=== PATIENT | female | born 2000 | race Caucasian/White ===

== ENCOUNTER 2023-11-20 08:35 | Inpatient (IN) | payer OTHER, SELFPAY ==
[2023-11-20] VITALS (46 sets, daily range): BP systolic 98–142; BP diastolic 58–96; PULSE 67–113; RESP 16–18; TEMP 36.2–37.4; O2SAT 91–100; BMI 26.8
[2023-11-20] MEDS: Lactated Ringers 1,000 ML 999 ML IV (06:50)
--- NOTE | 2023-11-20 07:29 | OB.TRI.NOTE ---
HPI - General General Date of Admission: 11/20/23 HPI Narrative MICHAEL MAST, is a 23 F at 39 weeks who presents to triage with contractions that started yesterday and have increased in frequency and intensity. Prior delivery by section and patient desires TOLAC. Maternal Data Information JACKIE Calculator Estimated Delivery Date Method Current WG Current Estimate 11/27/23 Manual 39w 5d PFSH PFSH Medical History (Updated 11/22/23 @ 10:[address] Annette Pérez MD) depression Home Medications famotidine 20 mg tablet (Pepcid) 20 mg PO DAILY 11/20/23 [History Last Taken Unknown] acetaminophen 500 mg tablet 1,000 mg (2 x 500 mg) PO Q6 #0 tabs 11/22/23 [Rx Last Taken Unknown] ibuprofen 600 mg tablet 600 mg PO Q6H #0 tabs 11/22/23 [Rx Last Taken Unknown] Allergy/AdvReac Type Severity Reaction Status Date / Time ramón Allergy racing HR Verified 11/20/23 04:13 Social History Smoking Status: Never smoker History Elective abortions Hx Para 1 Spontaneous abortions Hx # Term Pregnancies Ectopic pregnancies Hx # Pregnancies Multiple births # of living children Assessment & Plan (1) 39 weeks gestation of : (2) Previous delivery, antepartum: (3) Uterine contractions: PLAN: Plan CE 2/60/-3 Start IV and give 1000 L bolus of LR Will continue to monitor and reevaluate NST reactive Dr. Monzon updated and is assuming management
--- NOTE | 2023-11-20 08:35 | HP.PCM.OB_ITS ---
HPI - General General Date of Admission: 11/20/23 Date of Service: 11/20/23 Chief Complaint: contractions HPI Narrative MICHAEL MAST, is a 23 F who presents who presents complaining contractions that were irregular yesterday. More regular and intense since she got here today. She denies any bleeding or leaking. She has a history of 1 previous section she was at 4 cm and it was done for intolerance to labor. Past surgical history significant for section Allergies no known drug allergies Medications vitamin, famotidine as needed for heartburn. Past medical history significant for reflux, colonic polyps, vitamin D deficiency and anxiety Social history she denies any tobacco alcohol or drug use Maternal Data Information JACKIE Calculator Estimated Delivery Date Method Current WG Current Estimate 11/27/23 Manual 39w 0d Final JACKIE: 11/27/23 Gestational age: 39 0/7 PFSH PFSH Home Medications famotidine 20 mg tablet (Pepcid) 20 mg PO DAILY 11/20/23 [History Last Taken Unknown] Allergy/AdvReac Type Severity Reaction Status Date / Time ramón Allergy racing HR Verified 11/20/23 04:13 ROS Constitutional Constitutional: Denies fatigue, fever(s) or malaise Eyes Eyes: Denies change in vision ENT HEENT: Denies dizziness or headache(s) Cardiovascular Cardiovascular: Denies chest pain, dyspnea or lightheadedness Respiratory/Chest Respiratory/Chest: Denies cough or dyspnea Gastrointestinal Gastrointestinal: Denies change in bowel habits Genitourinary Genitourinary: Denies burning urination or genital lesions Integumentary Integumentary: Denies rash Neurologic Neurologic: Denies confusion, dizziness, headache(s), numbness or weakness Vital Signs Vital Signs Vital Signs: 11/20/23 07:27 11/20/23 07:27 11/20/23 07:30 Temperature Temperature Source Temporal Pulse Rate 69 Blood Pressure 127/83 H BP Systolic 127 BP Diastolic 83 11/20/23 07:30 Temperature 98.3 F Temperature Source Pulse Rate Blood Pressure BP Systolic BP Diastolic Weight Weight: 73.028 kg Body Mass Index (BMI) 26.8 Physical Exam Const alert and no apparent distress General Appearance: cooperative HEENT normocephalic Resp normal respiratory effort Cardio regular rate GI soft to palpation GI Narrative: gravid, nontender, appropriate for gestational age Extremity no calf tenderness General Extremity: edema Skin no wounds Rashes: No rashes noted Psych activity/motor behavior normal Labs Labs Labs: No Data to Display Assessment & Plan (1) 39 weeks gestation of : (2) Previous delivery, antepartum: (3) Spontaneous onset of labor: PLAN: Plan May weight is less than 4000 g and pelvis clinically adequate to expect va ginal delivery. Risk benefits alternatives to trial of labor were discussed with patient, her questions were answered to her satisfaction she desires to proceed. She understands short and long-term risk. She understands risk of uterine rupture, possible lack of oxygen stroke hemorrhage need for blood transfusion and even for her and the fetus. She desires to proceed. Understands recommendation for epidural and reasoning for this. Team is notified. May have routine pain control measures as needed and as indicated.
[2023-11-20 08:57] LABS: Absolute Lymphocyte Count 2.72 X10^3/uL (0.83-4.51); Basophil# 0.05 X10^3/uL; Basophil% 0.4 % (0-1); Eosinophil# 0.16 X10^3/uL; Eosinophils% 1.3 % (0-5); Hematocrit 40.4 % (37-47); Hemoglobin 13.8 g/dL (12.0-15.0); Lymphocyte # 2.72 X10^3/ul (0.83-4.51); Lymphocyte % 21.4 % (19-41); Mean Corp Hgb Conc 34.2 g/dL (32-36); Mean Corpuscular Hgb 31.4 pg (27.0-32.0); Mean Platelet Vol. 11.6 fl (6.2-12.0); Monocyte# 0.71 X10^3/uL; Monocyte% 5.6 % (0-10); NRBC Flagged by Analyzer 0 % (0-5); Neutrophil % 70.7 % (47-70); Platelet Count 265 K/mm3 (150-450); RBC Distribution Width CV 12.7 % (11.6-14.6); RBC Distribution Width SD 42.8 fl (35.1-43.9); Red Blood Count 4.39 M/mm3 (4.2-5.4); White Blood Count 12.7 K/mm3 (4.4-11.0)
[2023-11-20 09:26] LABS: Syphilis Antibodies Non-reactive
[2023-11-20] MEDS: Penicillin G Pot 5,000,000 UNITS in 0.9% Normal Saline (100mL MB+) 100 ML 150 UNITS IV (09:30)
[2023-11-20] MEDS: Lactated Ringers 1,000 ML 50 ML IV (09:30)
[2023-11-20] MEDS: Ondansetron 4 MG/2 ML Vial IV (10:17)
[2023-11-20] MEDS: LACTATED RINGERS 500 ML 999 ML IV (10:30)
[2023-11-20] MEDS: fentaNYL-bupivacaine (epidural) 100 ML BAG EPIDURAL (10:58)
[2023-11-20] MEDS: CHLORHEXIDINE GLUC 2% CLOTH 1 EACH TOWELETTE TOPICAL (12:37)
[2023-11-20] MEDS: Amnioinfusion- 0.9% NS 1,000 ML IV.SOLN. 50 ML INTRA-UTER (12:40)
[2023-11-20] MEDS: Acetaminophen 500 MG Tablet PO (13:22)
[2023-11-20] MEDS: Sodium Citrate/Citric Acid 30 ML UDC PO (13:22)
[2023-11-20] MEDS: Cefazolin 2 GM in 0.9% Normal Saline (100mL Bag) 100 ML IV (13:27)
[2023-11-20] MEDS: Azithromycin 500 MG in Dextrose 5%-Water (250mL Bag) 250 ML 250 MG IV (13:40)
--- NOTE | 2023-11-20 14:13 | OP.PCM_ITS ---
Assessment & Plan (1) Failed trial of labor following previous , antepartum: (2) Spontaneous onset of labor: (3) 39 weeks gestation of : (4) Single live : Maternal Data Information JACKIE Calculator Estimated Delivery Date Method Current WG Current Estimate 11/27/23 Manual 39w 0d Final JACKIE: 11/27/23 Gestational age: 39 0/7 Details Operative Information Date of Procedure: 11/20/23 Pre-Operative Diagnosis: category 2 FHTs remote from delivery Post-Operative Diagnosis: same +CPD Classification: GERTRUDIS Procedure Type: low transverse security manager #1: David Chong Type of Anesthesia: Spinal Anesthesiologist: Tiffanie Man Antibiotic Given: Ancef 2 grams IV x1 and Zithromax 500 mg/5 mL X1 Drain: Nick to straight drain Estimated Blood Loss: 600 Fluids Replaced: 1100 Procedure Start Time: 13:43 Procedure Stop Time: 15:16 Time of Delivery: 13:47 Findings Description of Procedure: The patient was taken to the operating room. She was prepped and draped in the dorsal supine position with a leftward tilt. A Pfannenstiel skin incision was made approximately 2 cm above the symphysis pubis and carried through to underlying layer fascia with the scalpel. The fascia was incised incised in the midline and extended laterally with the Hunter scissors. The fascia was dissected off the rectus muscles with blunt and sharp dissection. The rectus muscles were in the midline and the peritoneum was entered bluntly. The peritoneal incision was stretched and the bladder blade was placed. The uterine incision was made in a low transverse fashion with the scalpel and extended superiorly and inferiorly with blunt dissection. The membranes were ruptured and light meconium stained fluid returned. The infant's head was brought to the incision in the flexed position but was not able to easily deliver. The manage scissors were used to extend the uterus to the right and c ut a little bit of the right side of the rectus muscles. The vacuum was placed on the flexion point and vacuum created 550 mmHg. I pulled with 1 pull and the head delivered without difficulty. The vacuum was removed. There were no pop offs the remainder of the infant was delivered with gentle traction and fundal pressure in the standard fashion. The mouth and nares were bulb suctioned. The cord was clamped and cut as the infant was stimulated. Cord clamping was not delayed. The infant was handed off to the waiting nursing staff. The placenta was delivered with fundal massage and gentle traction in the standard fashion. The uterus was exteriorized and cleared of all clots and debris. The uterine incision was closed with #1 Vicryl in a running locked fashion. 2 [id number] 0 Vicryl sutures were needed to obtain hemostasis in the incision. The incision was examined and was found to be hemostatic. The uterus was placed back into the peritoneal cavity and hemostasis was again confirmed. The rectus muscles were examined and any bleeding was Bovie cauterized. The parietal peritoneum and rectus muscles were closed en bloc with an 0 Vicryl running suture. The rectus fascia was examined and any bleeding was Bovie cauterized and the rectus fascia was closed with 1 Vicryl suture in a running standard fashion. The subcutaneous tissue was examining and any blee ding was Bovie cauterized. The subcutaneous tissue was reapproximated with 3-0 Vicryl suture. The skin was closed in a subcuticular fashion by the [employer] with me present in the labor and delivery suite. I performed the remainder of the procedure with assistance. All sponge, lap, and needle counts were correct. The patient was taken to her room for recovery in a stable condition. Apgars were not available at the time of this note due to pediatric team still attending to . Presentation: Positive for Vertex Amniotic Membrane Rupture Type: Artificial Amniotic Fluid Description: Lightly stained meconium Placental Delivery Description: Expressed Placenta Disposition: Sent to Pathology Cord Vessel Description: 3 Vessels Cord Entanglement: Around neck x 1, loose Nuchal Cord Compression: Without compression Cord Gases: ABG and VBG Infant A Gender: Male Delayed Cord Clamping: No Complications Complications: none
[2023-11-20] MEDS: Oxytocin 15 Units/NS 250ml 15 UNITS/250 ML IV.SOLN 83 UNITS IV (15:20)
[2023-11-20] MEDS: Ketorolac 30 MG/ML Syringe IV ×2 (16:32→22:40)
[2023-11-20] MEDS: Acetaminophen 500 MG Tablet 1000 MG PO (18:23)
[2023-11-20] MEDS: Lactated Ringers 1,000 ML 100 ML IV (18:24)
[2023-11-20] MEDS: 0.9% Saline Lock 10 ML Syringe IV (22:40)
[2023-11-21] VITALS (7 sets, daily range): BP systolic 110–115; BP diastolic 75–81; PULSE 61–83; RESP 16; TEMP 36.6–36.9; O2SAT 98–100
[2023-11-21] MEDS: Acetaminophen 500 MG Tablet 1000 MG PO ×5 (00:24→23:54)
[2023-11-21] MEDS: 0.9% Saline Lock 10 ML Syringe IV ×2 (04:51→10:44)
[2023-11-21] MEDS: Ketorolac 30 MG/ML Syringe IV ×2 (04:51→10:44)
[2023-11-21 05:17] LABS: Hematocrit 37.5 % (37-47); Hemoglobin 12.2 g/dL (12.0-15.0); Mean Corp Hgb Conc 32.5 g/dL (32-36); Mean Corpuscular Hgb 31.8 pg (27.0-32.0); Mean Corpuscular Volume 97.7 fL (81-99); Mean Platelet Vol. 11.1 fl (6.2-12.0); Platelet Count 244 K/mm3 (150-450); RBC Distribution Width CV 12.7 % (11.6-14.6); RBC Distribution Width SD 44.9 fl (35.1-43.9); Red Blood Count 3.84 M/mm3 (4.2-5.4); White Blood Count 21.2 K/mm3 (4.4-11.0)
[2023-11-21] MEDS: Senna/Docusate Sodium 1 Tablet PO (10:44)
--- NOTE | 2023-11-21 11:34 | PCM.PN.OB ---
Subjective Subjective She has been unable to void since dumont removed. Denies other complaints Objective Data Objective Data Vital Signs: Vital Signs Temp Pulse Resp BP Pulse Ox O2 Del Method 98.3 F 67 16 113/79 98 Room Air 11/21/23 09:19 11/21/23 09:19 11/21/23 09:19 11/21/23 09:19 11/21/23 09:19 11/21/23 09:19 Oxygen Delivery Method Room Air Weight: 161 lb Body Mass Index (BMI) 26.8 Intake & Output: Intake and Output for Last 24 Hours 11/19/23 11/20/23 11/21/23 23:59 23:59 23:59 Intake Total 2942.5 / 2942.5 Output Total 3500 / 3500 1200 / 1200 Balance -557.5 / -557.5 -1200 / -1200 Lab / Micro Data 11/21/23 05:05 Labs: Laboratory Results - last 24 hr 11/21/23 05:05: WBC 21.2 H, RBC 3.84 L, Hgb 12.2, Hct 37.5, MCV 97.7 D, MCH 31.8, MCHC 32.5, RDW Std Deviation 44.9 H, RDW Coeff of Daniel 12.7, Plt Count 244, MPV 11.1 Physical Exam Const alert, oriented x3 and no apparent distress HEENT normocephalic GI soft to palpation, non-tender and non-distended GI Narrative: fundus firm, mid & below umbilicus Incision - bandage c/d/i other than scant dried blood on bandage Extremity normal to inspection and no calf tenderness Assessment & Plan (1) Failed trial of labor following previous , antepartum: COMMENT: POD#1 PLAN: Plan Heme - HDS, CBC reviewed ID - AF, no signs infection - plan for straight catheterization if patient unable to void GI - ADAT Routine care
[2023-11-21] MEDS: Ibuprofen 600 MG Tablet PO ×2 (16:49→23:53)
[2023-11-21] MEDS: SimETHICONE 80 MG Chewable Tablet PO (20:57)
[2023-11-22 01:30] VITALS: BP 122/93; PULSE 82; RESP 15; TEMP 36.3; O2SAT 99
[2023-11-22] MEDS: Acetaminophen 500 MG Tablet 1000 MG PO ×2 (06:20→12:20)
[2023-11-22] MEDS: Ibuprofen 600 MG Tablet PO ×2 (06:20→12:20)
[2023-11-22 09:19] VITALS: BP 114/72; PULSE 79; RESP 16; TEMP 36.4; O2SAT 98
[2023-11-22] MEDS: Senna/Docusate Sodium 1 Tablet PO (09:25)
[2023-11-22] MEDS: SimETHICONE 80 MG Chewable Tablet PO ×2 (09:26→12:19)
--- NOTE | 2023-11-22 10:04 | PCM.PN.OB ---
Subjective Subjective Denies compplaints Objective Data Objective Data Vital Signs: Vital Signs Temp Pulse Resp BP Pulse Ox O2 Del Method 97.6 F L 79 16 114/72 98 Room Air 11/22/23 09:19 11/22/23 09:19 11/22/23 09:19 11/22/23 09:19 11/22/23 09:19 11/22/23 09:19 Oxygen Delivery Method Room Air Weight: 161 lb Body Mass Index (BMI) 26.8 Intake & Output: Intake and Output for Last 24 Hours 11/20/23 11/21/23 11/22/23 23:59 23:59 23:59 Intake Total 2942.5 / 2942.5 Output Total 3500 / 3500 2300 / 2300 Balance -557.5 / -557.5 -2300 / -2300 Lab / Micro Data 11/21/23 05:05 Physical Exam Const alert, oriented x3 and no apparent distress HEENT normocephalic GI soft to palpation, non-tender and non-distended GI Narrative: fundus firm, mid & below umbilicus Incision - bandage c/d/i other than stable dried blood Extremity normal to inspection and no calf tenderness Assessment & Plan (1) Failed trial of labor following previous , antepartum: COMMENT: POD#2 PLAN: Plan D/c home
--- NOTE | 2023-11-22 10:07 | PCM.DC.SUM ---
Providers Date of Admission: 11/20/23 Primary Care Physician: Asha Primary Care Phys Reason For Visit: REPEAT Diagnosis Discharge Diagnosis (1) Failed trial of labor following previous , antepartum: Status: Acute Code(s): O66.41 - Failed attempted vaginal after previous delivery Plan D/c home Medications at Discharge Home Medications famotidine 20 mg tablet (Pepcid) 20 mg PO DAILY 11/20/23 acetaminophen 500 mg tablet 1,000 mg (2 x 500 mg) PO Q6 #0 tabs 11/22/23 ibuprofen 600 mg tablet 600 mg PO Q6H #0 tabs 11/22/23 Hospital Course Operations section Summary of Care Provided Minutes Spent on Discharge: 15 Weight / BMI Weight Weight: 161 lb Body Mass Index (BMI) 26.8 ABG / Lab / Microbiology Data 11/21/23 05:05 D/C Instructions Discharge Diet: No restrictions Discharge Activity: May Shower May resume sexual activity in: 6 weeks Weight Bearing Status: Weight bearing as tolerated Call your doctor if your incision/area has: Continuous Slow Oozing, Sudden Increased Bleeding, Increased Pain/ Swelling, Increased Redness, Foul Smelling Discharge and Swelling at the incision site Call your doctor if you observe: Fever of 101 or Higher, Coldness, Increased Pain, Change in Color, Inability to urinate, Inability to have a bowel movement, Using more than 1 pad per hour, Shortness of breath, Dizziness, Fainting spells, Chest pain, Increased palpitations (irregular heartbeat), Calf discomfort and Uncontrolled pain Suture Line Care: Avoid Pulling/Pushing and Avoid Pinching/Bending Remove Dressing in: 1 week Cleanse incision/area with: Soap & Water Please Follow Up With: Genia Monzon MD When: Follow up in 2 and 6 weeks for visits. Meaningful Use Info Meaningful Use Diagnoses (Choose all that apply): None applicable Discharge Plan Admission Admit Date/Time: 11/20/23 08:35 Primary Reason for Your Visit: section Attending Provider: Genia Monzon Primary Care Provider: [facility] Primary Discharge Orders/Prescriptions Prescriptions: New acetaminophen 500 mg Tablet 1,000 mg PO Q6 Qty: 0 0RF ibuprofen 600 mg Tablet 600 mg PO Q6H Qty: 0 0RF Continued famotidine [Pepcid] 20 mg tablet 20 mg PO DAILY Referrals / Follow Up: Gilda PhysicianNo Primary [Primary Care Provider] - Disposition Disposition (needs filled in before D/C Order can be placed): Home, Self Care
[2023-11-24 23:50] LABS: Pathology Specimen OB SEE PATHOLOGY REPORT
== END 2023-11-22 12:30 | disposition home or self-care (01) | DRG 788 ==
LOC: WPOUT 11-24 11:00
PROVIDERS: Admitting Provider Obstetrics & Gynecology; Referring Provider Obstetrics & Gynecology; Visit Provider Obstetrics & Gynecology
DX: O34.219 Maternal care for unspecified type scar from previous cesarean delivery (principal); O66.41 Failed attempted vaginal birth after previous cesarean delivery; Z3A.39 39 weeks gestation of pregnancy; O69.81X0 Labor and delivery complicated by cord around neck, without compression, not applicable or unspecified; O77.0 Labor and delivery complicated by meconium in amniotic fluid; Z37.0 Single live birth
CPT/HCPCS: 59025; 59050; 85025; 85027; 86780; 86850; 86900; 86901; 99221; J7030; J7120; A4216; G0378; J2405

== ENCOUNTER 2025-05-16 09:45 | Inpatient (IN) | payer OTHER, SELFPAY ==
--- NOTE | 2025-04-27 11:54 | HP.PCM_ITS ---
History and Physical Date of Admission: 05/16/25 HPI: The patient is a 24 year old female presenting for pre-operative visit. She is scheduled for , for prevous c/s on 05/16/25. Procedure discussed along with risks, benefits and complications. Other alternatives discussed for management. Consent form signed? Yes. ? ? PAST MEDICAL HISTORY PAST MEDICAL HISTORYDiagnosisDate?anxiety??Elevated glucose tolerance test09/08/2023?09/14/23-3hr GTT normal. Barbi Hernandez APRN.CNM 09/08/23 - needs 3hr GTT - Anntete Pérez MD ? ?Gastric reflux??History of colonic polyps??Hyperlipidemia??Kidney stone??Nausea and vomiting during (HCC)10/14/2024?10/14/24 Vitamin B6 and Unisom doses reviewed. Already has Zofran rx. Reviewed first trimester risks. Dina Gomes APRN.CLOTH COVERED HELMET PULLER ? ? depression??Vitamin D deficiency? ? ? PAST SURGICAL HISTORY PAST SURGICAL HISTORYProcedureLateralityDate? SECTION HX???x2 ?COLONOSCOPY & POLYPECTOMY???[facility]???LITHOTRIPSY XTRCORP SHOCK WAVE???with stents ? ? ? CURRENT MEDICATIONS Current Outpatient MedicationsMedicationSigDispenseRefill?ferrous sulfate 325 mg (65 mg iron) EC tabletTake 1 tablet by mouth once daily.???potassium chloride (K-TAB) 10 mEq tabletTake 10 mEq by mouth two times a day.???famotidine (PEPCID) 20 mg tabletTake 1 tablet by mouth two times a day.60 tablet2?glucose 4 gram chewable tabletTake by mouth every 24 hours.???montelukast (SINGULAIR) 10 mg tablettake 1 tablet (10 mg) by mouth once daily at bedtime.???ondansetron (ZOFRAN) 4 mg tabletTake 1 tablet by mouth every 8 hours as needed.30 tablet3?fluticasone (FLONASE) 50 mcg/actuation nasal sprayADMINISTER 2 SPRAYS INTO EACH NOSTRIL ONCE DAILY.???PNV 78-eaif-dusqkaltyati-dha 29 mg iron-1 mg - 350 mg CKDRTake 1 capsule by mouth once daily.1 Kit11?calcium phosphate dibas/vit D3 (VITAMIN D, WITH CALCIUM, ORAL)Take by mouth.???acyclovir (ZOVIRAX) 400 mg tabletTake 1 tablet by mouth two times a day. for 7 days as needed for [id number] tablet1?No current facility-administered medications for this visit. ? ? ALLERGIES: Karla ? PERSONAL HISTORY: SOCIAL HISTORY Social History?Tobacco Use?Smoking status:Never?Smokeless tobacco:NeverVaping Use?Vaping status:Never UsedSubstance Use Topics?Alcohol use:Not Currently?? Comment: occasionally?Drug use:Never ? FAMILY HISTORY: FAMILY HISTORY FAMILY HISTORY ProblemRelationAge of Onset?FibromyalgiaMother??other (endometriosis)Mother??other (gastrc reflux)Father??DiabetesFather??other (transgender)Brother??No Known ProblemsBrother??No Known ProblemsBrother??No Known ProblemsMaternal Grandmother??No Known ProblemsMaternal Grandfather??other (diverticulosis)Paternal Grandmother??SarcoidosisPaternal Grandmother??DiabetesPaternal Grandfather??ObesityPaternal Grandfather??No Known ProblemsDaughter??No Known ProblemsSon? ? ? REVIEW OF SYMPTOMS: GENERAL: denies fevers or chills ENDOCRINOLOGY: has not been on steroids Cardiology : denies palpitations or chest pain Respiratory: denies SOB or cough Hematology: denies history of prolonged bleeding or easy bruising or VTE Allergy: Denies history of personal or family history of allergy to anesthesia ? PHYSICAL EXAMINATION: ? VITALS: Blood pressure 104/62, weight 70.8 kg (156 lb), last menstrual period 08/14/2024, not currently . ? GENERAL: The patient is well nourished, well hydrated in no acute distress. , The patient is oriented to time, place, and person. NECK: Supple. No lynphadenopathy, normal thyroid, no thyromegaly. LUNGS: Clear to auscultation bilaterally. no wheezes, rhonchi or rales HEART: Regular rate and rhythm, Normal heart sounds, and No murmurs or gallops abd- soft, nontender, gravid ? IMPRESSION: Estimated Date of Delivery: 05/21/25 ? PLAN: The risks/benefits/alternatives and personal involved for the planned delivery were reviewed with the patient. Her questions were answered to her satisfaction and she desires to proceed. Consent was signed. I reviewed with her postop instructions and expectations. ? ? I have reviewed and updated past medical and surgical history, medications and allergies Assessment & Plan Assessment/Plan (1) Previous delivery affecting : (2) Supervision of high risk in third trimester:
[2025-05-16] VITALS (15 sets, daily range): BP systolic 99–120; BP diastolic 56–76; PULSE 69–103; RESP 15–19; TEMP 36.1–36.8; O2SAT 97–100; BMI 25.3
[2025-05-16] MEDS: Lactated Ringers 1,000 ML 150 ML IV (10:50)
[2025-05-16] MEDS: Lactated Ringers 1,000 ML 999 ML IV (10:53)
[2025-05-16 11:01] LABS: Absolute Lymphocyte Count 1.85 X10^3/uL (0.83-4.51); Absolute Neutrophil Count 6.3 X10^3/uL (2.0-7.7); Basophil# 0.02 X10^3/uL; Basophil% 0.2 % (0-1); Eosinophil# 0.04 X10^3/uL; Eosinophils% 0.5 % (0-5); Hematocrit 35.1 % (37-47); Lymphocyte # 1.85 X10^3/ul (0.83-4.51); Lymphocyte % 21.1 % (19-41); Mean Corp Hgb Conc 34.2 g/dL (32-36); Mean Corpuscular Hgb 30.5 pg (27.0-32.0); Mean Corpuscular Volume 89.3 fL (81-99); Monocyte# 0.56 X10^3/uL; Monocyte% 6.4 % (0-10); NRBC Flagged by Analyzer 0 % (0-5); Neutrophil # 6.26 X10^3/uL (2.7-7.7); Neutrophil % 71.3 % (47-70); Platelet Count 218 K/mm3 (150-450); RBC Distribution Width CV 14.6 % (11.6-14.6); RBC Distribution Width SD 47.5 fl (35.1-43.9); Red Blood Count 3.93 M/mm3 (4.2-5.4); White Blood Count 8.8 K/mm3 (4.4-11.0)
[2025-05-16] MEDS: Acetaminophen 500 MG Tablet 1000 MG PO ×3 (11:04→22:54)
[2025-05-16 11:37] LABS: Syphilis Antibodies Nonreactive (Nonreactive)
[2025-05-16] MEDS: Sodium Citrate/Citric Acid 30 ML UDC PO (12:05)
[2025-05-16] MEDS: Cefazolin 2 GM in 0.9% Normal Saline (100mL Bag) 100 ML IV (12:19)
--- NOTE | 2025-05-16 12:59 | EX.PCM.OBRPT ---
Assessment & Plan (1) Supervision of high risk in third trimester: (2) Previous delivery affecting : Maternal Data Information Final JACKIE: 05/21/25 Gestational age: 39 2/7 Operative Report (OB) Details Procedure Type: low transverse Date of Procedure: 05/16/25 Procedure Start Time: 12:32 Procedure Stop Time: 13:02 Time of Delivery: 12:36 Pre-Operative Diagnosis: Repeat Elective Post-Operative Diagnosis: Same as Pre-operative diagnosis Classification: Scheduled Type of Anesthesia: Spinal Special Medications: duramorph Antibiotic Given: Ancef 2 grams IV x1 Drain: Nick to straight drain Estimated Blood Loss: 600 Fluids Replaced: 700 Findings Description of surgery: The patient was taken to the operating room. She was prepped and draped in the dorsal supine position with a leftward tilt. A Pfannenstiel skin incision was made approximately 2 cm above the symphysis pubis and carried through to underlying layer fascia with the scalpel. The fascia was incised incised in the midline and extended laterally with the Hunter scissors. The fascia was dissected off the rectus muscles with blunt and sharp dissection. The rectus muscles were in the midline and the peritoneum was entered bluntly. The peritoneal incision was stretched and the bladder blade was placed. The uterine incision was made in a low transverse fashion with the scalpel and extended superiorly and inferiorly with blunt dissection. The amniotic membranes were ruptured bluntly and clear amniotic fluid returned. The infant's head was brought to the incision in the flexed position and delivered without difficulty. The remainder of the was delivered with gentle traction and fundal pressure in the standard fashion. The mouth and nares were bulb suctioned. The cord was clamped and cut as the infant was stimulated. Cord clamping was delayed. The was handed off to the waiting nursing staff. The placenta was delivered with fundal massage and gentle traction in the standard fashion. The uterus was exteriorized and cleared of all clots and debris. The cervix was dilated with a ring forcep. The uterine incision was closed with #1 Vicryl in a running locked fashion. The incision was examined and was found to be hemostatic. The uterus was placed back into the peritoneal cavity and hemostasis was again confirmed. The rectus muscles were examined and any bleeding was Bovie cauterized. The parietal peritoneum and rectus muscles were closed en bloc with an 0 Vicryl running suture. The surgical teams outer gloves were then changed. The rectus fascia was examined and any bleeding was Bovie cauterized and the rectus fascia was closed with 1 Vicryl suture in a running standard fashion. The subcutaneous tissue was examining and any bleeding was Bovie cauterized. The subcutaneous tissue was reapproximated with 3-0 Vicryl suture. The skin was closed in a subcuticular fashion by the resident with me present in the labor and delivery suite. I was present for the entire procedure. All sponge, lap, and needle counts were correct. The patient was taken to her room for recovery in a stable condition. Surgical findings: normal uterus, tubes and ovaries, vigorous female infant Presentation: Vertex Amniotic Membrane Rupture Type: Artificial Amniotic Fluid Description: Clear Placental Delivery Description: Expressed Placenta Disposition: [facility] Specimen collected: No Cord Vessel Description: 3 Vessels Cord Entanglement: Around neck x 2, loose Nuchal Cord Compression: Without compression A gender: Female (1 minute): 9 (5 minute): 9 Delayed Cord Clamping: Yes Line Construction Supervisor magnetic tape composer operator: Yes Shipping Supervisor: Dina Ye MD PGY4 Tasks completed by registered dental assistant rda: Opening, Closing, Dissecting tissue and Retracting Complications Complications: No
[2025-05-16] MEDS: Oxytocin 15 Units/NS 250ml 15 UNITS/250 ML IV.SOLN 83 UNITS IV (13:30)
[2025-05-16] MEDS: Ketorolac 30 MG/ML Syringe IV ×2 (14:25→20:55)
[2025-05-16] MEDS: 0.9% Saline Lock 10 ML Syringe IV ×2 (16:43→20:56)
[2025-05-17] MEDS: 0.9% Saline Lock 10 ML Syringe IV (02:55)
[2025-05-17] MEDS: Ketorolac 30 MG/ML Syringe IV ×2 (02:55→07:59)
[2025-05-17 03:48] VITALS: BP 109/62; PULSE 73; RESP 17; TEMP 36.5; O2SAT 97
[2025-05-17] MEDS: Acetaminophen 500 MG Tablet 1000 MG PO ×2 (05:24→10:58)
[2025-05-17 05:58] LABS: Hematocrit 31.1 % (37-47); Hemoglobin 10.5 g/dL (12.0-15.0); Mean Corp Hgb Conc 33.8 g/dL (32-36); Mean Corpuscular Hgb 30.4 pg (27.0-32.0); Mean Corpuscular Volume 90.1 fL (81-99); Mean Platelet Vol. 10.1 fl (6.2-12.0); Platelet Count 173 K/mm3 (150-450); RBC Distribution Width CV 14.8 % (11.6-14.6); RBC Distribution Width SD 48.2 fl (35.1-43.9); Red Blood Count 3.45 M/mm3 (4.2-5.4); White Blood Count 9.8 K/mm3 (4.4-11.0)
[2025-05-17 07:55] VITALS: BP 104/62; PULSE 65; RESP 16; TEMP 36.5
[2025-05-17] MEDS: SimETHICONE 80 MG Chewable Tablet PO (07:59)
--- NOTE | 2025-05-17 08:32 | DS.PCM_ITS ---
Providers Date of Admission: 05/16/25 Primary Care Physician: Asha Primary Care Phys Reason For Visit: REPEAT Diagnosis Discharge Diagnosis (1) Supervision of high risk in third trimester: Status: Acute Code(s): O09.93 - Supervision of high risk , unspecified, third trimester (2) Previous delivery affecting : Status: Acute Code(s): O34.219 - Maternal care for unspecified type scar from previous delivery Medications at Discharge Home Medications famotidine 20 mg tablet (Pepcid) 20 mg PO Q12H heartburn 11/20/23 ondansetron HCl 4 mg tablet 4 mg PO DAILY PRN nausea and vomiting 05/16/25 vitamins-iron fumarate 65 mg iron-folic acid 1 mg tablet (Mynatal Plus) 1 tab PO DAILY 05/16/25 acetaminophen 500 mg tablet 1,000 mg (2 x 500 mg) PO Q6H #0 tabs 05/17/25 ibuprofen 600 mg tablet 600 mg PO Q6H #0 tabs 05/17/25 oxycodone 5 mg tablet 5 mg PO Q4H PRN PRN Pain Score 4-10 7 days #10 tabs 05/17/25 sennosides 8.6 mg-docusate sodium 50 mg tablet (Stimulant Laxative Plus) 1 - 2 tab PO DAILY #60 tabs 05/17/25 Hospital Course Summary of Care Provided Minutes Spent on Discharge: 15 Hospital Course: Presented on 05/16/25 for repeat section. Postoperative course uncomplicated. Discharge home on postoperative day #1. Weight / BMI Weight Weight: 152 lb 3.2 oz Body Mass Index (BMI) 25.3 ABG / Lab / Microbiology Data 05/17/25 05:50 Laboratory: Laboratory Results - last 24 hr 05/16/25 10:45: WBC 8.8, RBC 3.93 L, Hgb 12.0, Hct 35.1 L, MCV 89.3, MCH 30.5, MCHC 34.2, RDW Std Deviation 47.5 H, RDW Coeff of Daniel 14.6, Plt Count 218, MPV 11.0, Immature Gran % (Auto) 0.500, Neut % (Auto) 71.3 H, Lymph % (Auto) 21.1, Sheridan % (Auto) 6.4, Eos % (Auto) 0.5, Baso % (Auto) 0.2, Absolute Neuts (auto) 6.3, Absolute Lymphs (auto) 1.85, Nucleated RBC % 0, Syphilis Total Ab Nonreactive, Blood Type O POSITIVE, Antibody Screen NEGATIVE 05/17/25 05:50: WBC 9.8, RBC 3.45 L, Hgb 10.5 L, Hct 31.1 L, MCV 90.1, MCH 30.4, MCHC 33.8, RDW Std Deviation 48.2 H, RDW Coeff of Daniel 14.8 H, Plt Count 173, MPV 10.1 D/C Instructions Discharge Diet: No restrictions May resume sexual activity in: 6 weeks Weight Bearing Status: Full weight bearing Lifting Restricted to (Lbs): 20 Call your doctor if your incision/area has: Continuous Slow Oozing, Sudden Increased Bleeding, Increased Pain/ Swelling, Increased Redness, Foul Smelling Discharge and Swelling at the incision site Call your doctor if you observe: Fever of 101 or Higher, Inability to urinate, Inability to have a bowel movement, Using more than 1 pad per hour, Shortness of breath, Dizziness, Fainting spells, Chest pain, Increased palpitations (irregular heartbeat), Calf discomfort and Uncontrolled pain Suture Line Care: Avoid Pulling/Pushing Remove Dressing in: 1 week Cleanse incision/area with: Keep Dressing Clean & Dry DC O2, CPAP, BIPAP Needs Home O2 Discharge instructions: No Meaningful Use Info Meaningful Use Meaningful Use Diagnoses (Choose all that apply): None applicable Ischemic Stroke Statin Dosing Therapy Reference: STATIN DOSE THERAPY REFERENCE: * Patients > 75 years receive moderate or high dose statin therapy. * Patients 75 years or YOUNGER should receive HIGH intensity statin dose unless contraindicated. You will be required to document reason for non-treatment if statin daily dose does not meet guidelines. HIGH DOSE STATIN THERAPY DAILY Atorvastatin > than or = to 40 mg Rosuvastatin > than or = to 20 mg Amlodipine + Atorvastatin > than or = to 2.5/40 mg Ezetimibe + Simvastatin 10/80 mg Simvastatin 80mg Discharge Plan Admission Admit Date/Time: 05/16/25 09:45 Primary Reason for Your Visit: Repeat section Attending Provider: Genia Monzon Primary Care Provider: Care Physician,No Primary Discharge Orders/Prescriptions Prescriptions: New acetaminophen 500 mg Tablet 1,000 mg PO Q6H Qty: 0 0RF ibuprofen 600 mg Tablet 600 mg PO Q6H Qty: 0 0RF oxycodone 5 mg Tablet 5 mg PO Q4H PRN PRN (Reason: Pain Score 4-10) 7 Days Qty: 10 0RF sennosides-docusate sodium [Stimulant Laxative Plus] 8.6-50 mg Tablet 1 - 2 tab PO DAILY Qty: 60 0RF Continued famotidine [Pepcid] 20 mg tablet 20 mg PO Q12H Discontinued fluticasone propionate [24 Hour Allergy Relief] 50 mcg/actuation spray,suspension 2 spray intranasal DAILY PRN (Reason: allergy symptoms) Rx Instructions: administer into each nostril No Action ondansetron HCl 4 mg tablet 4 mg PO DAILY PRN (Reason: nausea and vomiting) Mynatal Plus 65 mg iron- 1 mg tablet 1 tab PO DAILY Referrals / Follow Up: Care Physician,No Primary [Primary Care Provider] - Disposition Disposition (needs filled in before D/C Order can be placed): Home, Self Care
--- NOTE | 2025-05-17 08:38 | PCM.PN.OB ---
Subjective Subjective Doing well per patient and nursing staff. Ambulating and taking PO without difficulty. Voiding and passing flatus. Pain controlled. , services for assistance. Denies headache, visual changes, chest pain, shortness of breath, leg pain or increased bleeding. Lochia normal. Objective Data Objective Data Vital Signs: Vital Signs Temp Pulse Resp BP Pulse Ox O2 Del Method 97.7 F L 65 16 104/62 97 Room Air 05/17/25 07:55 05/17/25 07:55 05/17/25 07:55 05/17/25 07:55 05/17/25 03:48 05/17/25 07:55 Oxygen Delivery Method Room Air Weight: 152 lb 3.2 oz Body Mass Index (BMI) 25.3 Intake & Output: Intake and Output for Last 24 Hours 05/15/25 05/16/25 05/17/25 23:59 23:59 23:59 Intake Total 8.33 / 8.33 Output Total 1500 / 1500 2049 / 2049 Balance 558.33 / 558.33 -2049 Lab / Micro Data 05/17/25 05:50 Labs: Laboratory Results - last 24 hr 05/16/25 10:45: WBC 8.8, RBC 3.93 L, Hgb 12.0, Hct 35.1 L, MCV 89.3, MCH 30.5, MCHC 34.2, RDW Std Deviation 47.5 H, RDW Coeff of Daniel 14.6, Plt Count 218, MPV 11.0, Immature Gran % (Auto) 0.500, Neut % (Auto) 71.3 H, Lymph % (Auto) 21.1, Thurston % (Auto) 6.4, Eos % (Auto) 0.5, Baso % (Auto) 0.2, Absolute Neuts (auto) 6.3, Absolute Lymphs (auto) 1.85, Nucleated RBC % 0, Syphilis Total Ab Nonreactive, Blood Type O POSITIVE, Antibody Screen NEGATIVE 05/17/25 05:50: WBC 9.8, RBC 3.45 L, Hgb 10.5 L, Hct 31.1 L, MCV 90.1, MCH 30.4, MCHC 33.8, RDW Std Deviation 48.2 H, RDW Coeff of Daniel 14.8 H, Plt Count 173, MPV 10.1 ROS Constitutional Constitutional: Reports systems reviewed and no addt'l complaints, except as documented; Denies headache(s) Eyes Eyes: Denies acute decrease in peripheral vision, blurry vision or change in vision ENT HEENT: Reports systems reviewed and no addt'l complaints, except as documented Cardiovascular Cardiovascular: Denies chest pain or dizziness Respiratory/Chest Respiratory/Chest: Denies cough, dyspnea, dyspnea on exertion, shortness of breath at rest or shortness of breath with exertion Gastrointestinal Gastrointestinal: Denies abdominal pain, diarrhea, nausea or vomiting Genitourinary Genitourinary: Denies abdominal discomfort Musculoskeletal Musculoskeletal: Denies limited range of motion Integumentary Integumentary: Reports systems reviewed and no addt'l complaints, except as documented Neurologic Neurologic: Reports systems reviewed and no addt'l complaints, except as documented Psychiatric Psychiatric: Reports systems reviewed and no addt'l complaints, except as documented Endocrine Endocrinology: Reports systems reviewed and no addt'l complaints, except as documented Hematologic/Lymphatic Hematologic/Lymphatic: Reports systems reviewed and no addt'l complaints, except as documented Allergic/Immunologic Allergic/Immunologic: Reports systems reviewed and no addt'l complaints, except as documented Physical Exam Const alert and oriented x3 General Appearance: cooperative Orientation / Consciousness: awake, oriented to person, oriented to place and oriented to time Exam Limitations: no limitations HEENT normocephalic Head and Scalp: normal to inspection, normocephalic and atraumatic Face and Sinus: normal facial exam Eyes General Eye: normal appearance of both eyes Neck full ROM Chest Chest: symmetrical chest wall rise Resp normal respiratory effort and normal air movement Auscultation: clear to auscultation bilaterally Cardio regular rate, regular rhythm, S1 normal heart sound, S2 normal heart sound, no murmurs, no rub, no gallops and no clicks GI normal to inspection, nondistended, normoactive bowel sounds and non-tender GI Narrative: Fundus firm 2 below U. Dressing dry and intact. appearance of the vagina normal Narrative: Normal lochia rubra Bladder / Kidney Exam: no CVA tenderness Back/Spine normal ROM Extremity normal to inspection and full ROM Skin no rashes or lesions noted Neuro oriented x3, CN's II-XII intact bilaterally and moves all extremities Sensorium / Orientation: awake, alert and oriented to person Motor Exam: clonus absent Deep Tendon Reflexes: Rt Patellar (L4): 2+ and Lt Patellar (L4): 2+ Assessment & Plan (1) Postoperative pain: (2) Delivery by section: PLAN: Plan 1) Routine care, POD #1 2) Vitals signs stable 3) Pain controlled 4) , services PRN 5) D/C home 6) Follow up in 1 weeks and 6 weeks
[2025-05-17] MEDS: Senna/Docusate Sodium 1 Tablet PO (10:58)
--- NOTE | 2025-05-17 13:26 | CASEMGMT ---
Social Work Assessment Labor and Delivery Unit Patient Address: [address] [place] [address] Phone number: [phone] Date of Referral: 05/16/25 Time of Referral:? 1610 Referred By: Dr. Monzon Date of Intervention: ??05/17/25 Time of Intervention:? 1020 Reason for Referral:? anxiety and depression Sw completed chart review and acknowledges social work consult due to maternal mental health. Sw presented to bedside and introduced self to mother of baby (ALLISON- Shreya) and father of baby (FOMaxx- Ranulfo). Sw explained reason for sw involvement and completed psychosocial assessment. History obtained from: medical records, MOB and FOB Household composition: Currently residing in the family home is SAAD COOPER, their two older children: Miko (9) and Reginaldo (17 months). baby to be included in residence when ready for discharge. Parents deny any housing concerns, stating that their home is safe and secure. Patient's parent/guardian status:? ?ALLISON states that she and SAAD met when they were in middle school, they have been together for 11 years. No concerns reported of domestic violence or intimate partner violence. Medical History: ?ALLISON is 24 year old female who is 3, para 2- now 3 following labor and delivery of . ALLISON received routine care during with [facility]. ALLISON presented to hospital for scheduled and delivered baby on 05/16/25 at 39 weeks gestation. Baby girl, named Barbie Castellano, was born weighing 6lb 15oz with apgars of 9 and 9 at one and five minutes of life, respectfully. ALLISON is breast feeding and reports that baby will be followed by Dr. Carrillo for pediatrics. Educational Status:? FOB completed 11th grade, ALLISON obtained her Associates degree. No problems with reading, learning or comprehension. Financial Status: Both parents are gainfully employed outside of the home. ALLISON works for [employer] and SAAD works for a [employer]. Infant Supplies:??All necessary baby supplies obtained, including: car seat, safe sleep space, clothes, diapers and wipes. Childcare/Caregiver(s):?ALLISON states that she will be the primary caregiver, when both parents are working baby will be watched by maternal grandma. Transportation:?? Both parents have their drivers license and reliable means of transportation, no barriers. Programs/Agencies Involved: ???Charles are not connected to any community resources that assist them financially. Children Services/Legal Issues:??? No history of children services involvement, no issues or concerns warranting referral to be made. Behavioral Health Issues: ??Mental Health History: SAAD states that he has caffeine induced anxiety, so he stopped drinking caffeine. ALLISON reports to having anxiety and depression. MOB states that prior to her other pregnancies/ deliveries she struggled with mental health. MOB states that she has intrusive anxious thoughts that have impacted her last periods. Substance Use History: Parents deny substance use prior to and during . ?? Family History:?SAAD reports that there is alcoholism on his side of the family. Sw explained importance of parents utilizing healthy coping skills opposed to seeking comfort from drugs or alcohol. ? Drug Screens: ??No drug screens observed while completing chart review. Family/Social Stressors:? ALLISON denies any problems, concerns or stressors at this time. Support Systems: FOB and maternal grandparents. Depression/Shaken Baby/Safe Sleeping:? Sw educated parents on signs and symptoms of baby blues and depression and anxiety. MOB states that when she experienced anxiety in the past it looked different each time. MOB states that following her daughter's she felt disassociated and disengaged from the baby. MOB states at that time she would feed the baby and that is all the involvement she had for a couple of months with the . MOB states that when her second baby was born, she had a difficult time calming her mind down to relax, and would wake up often to check on the baby while he was sleeping. MOB states that those deliveries were both traumatic and the c-sections were emergent. MOB states that this was scheduled and repeat, and she hopes that making the decision to proceed with the scheduled would help her mental health during this period. FOB states that he would be able to recognize if MOB were struggling with her mental health and he would know how to help and support her. MOB states that it is difficult to talk about her mental health, or ask for help when she is struggling. MOB states that she thinks if she can overcome her mental health it makes her strong. Sw encouraged MOB to get connected to a mental health professional during this period, or to talk to her health provider about starting a low dose medication to help her. ALLISNO states that her provider recommended medication and that is something that she is still considering. Sw educated parents on shaken baby prevention and ABCs of safe sleep, parents express understanding. ASSESSMENT:? MOB and baby admitted following labor and delivery of . This is MOB and SAAD's third baby together. ALLISON's third . ALLISON states that the other two c-sections were both emergent, and this time she opted for a scheduled repeat without the emergency and hopes that this will help her mental health during her period. MOB with mental health history positive for anxiety and depression, as well as undiagnosed depression and anxiety. MOB states that she is familiar with signs and symptoms to be on the lookout for. MOB states that she will try to be more vocal about what she is feeling/ experiencing with FOB and her other natural supports. MOB states that she is also considering talking to her provider about medication to help manage her mental health symptoms. ALLISON was laying in bed comfortably and SAAD was observed holding baby and caring for her. ALLISON reports at this time she feels like herself, and denies feeling sad, down, anxious or emotional. PLAN:? No other services requested or indicated. MOB and baby to be discharged when medically ready. Parents were provided literature regarding: signs and symptoms of baby blues and mood and anxiety disorders, Help Me Grow, shaken baby prevention, ABCs of safe sleep and a list of county resources that are available for them should any needs present themselves. Jesse Craig, [employer], EN[employer]MENTAL [employer]STRUCTION ENGINEER
[2025-05-17 14:20] VITALS: BP 105/63; PULSE 82; RESP 16; TEMP 36.6
[2025-05-17] MEDS: Ibuprofen 600 MG Tablet PO (15:22)
== END 2025-05-17 15:35 | disposition home or self-care (01) | DRG 788 ==
PROVIDERS: Admitting Provider Obstetrics & Gynecology; Referring Provider Obstetrics & Gynecology; Visit Provider Obstetrics & Gynecology
PROC: 10D00Z1 Extraction of Products of Conception, Low, Open Approach (ICD-10-PCS; CPT 59514; principal; 2025-05-16 11:45)
DX: O34.219 Maternal care for unspecified type scar from previous cesarean delivery (principal); K21.9 Gastro-esophageal reflux disease without esophagitis; O69.81X0 Labor and delivery complicated by cord around neck, without compression, not applicable or unspecified; Z37.0 Single live birth; Z3A.39 39 weeks gestation of pregnancy; Z87.59 Personal history of other complications of pregnancy, childbirth and the puerperium; O99.62 Diseases of the digestive system complicating childbirth; Z79.899 Other long term (current) drug therapy
CPT/HCPCS: 59025; 59050; 85025; 85027; 86780; 86850; 86900; 86901; 99221; A4216; G0378; J2405